=== PATIENT | female | born 2000 | race Hispanic/Latino ===

== ENCOUNTER 2022-02-21 23:14 | Emergency (ER) | payer OTHER, MEDICAID, SELFPAY ==
[2022-02-21 23:21] VITALS: BP 134/92; PULSE 67; RESP 22; TEMP 36.6; O2SAT 100
== END 2022-02-22 01:04 | disposition left against medical advice (07) ==
PROVIDERS: Emergency Provider Emergency Medicine
CPT/HCPCS: 99281

== ENCOUNTER 2022-04-10 12:02 | Emergency (ER) | payer OTHER, MEDICAID, SELFPAY ==
[2022-04-10 12:16] VITALS: BP 132/93; PULSE 95; RESP 18; TEMP 36.6; O2SAT 97; BMI 34.3
[2022-04-10 12:53] LABS: COVID19 -Nasal RAPID POSITIVE (Negative)
--- NOTE | 2022-04-10 13:27 | ED.RECABL ---
HPI - Recheck/Abnormal Lab/Rx General Chief Complaint: Recheck/Abnormal Lab/Rx Stated Complaint: loss of taste/smell, wants covid test Time Seen by Provider: 04/10/22 13:27 Source: patient Mode of arrival: Ambulatory History of Present Illness HPI narrative: Patient is a healthy 21-year-old female who presents with positive COVID test. She started feeling poorly last night nasal congestion sore throat to go home COVID test was positive. She has no chest pain or shortness of breath. Needing an official positive COVID test for work Related Data Allergies Allergy/AdvReac Type Severity Reaction Status Date / Time No Known Drug Allergies Allergy Verified 04/10/22 12:23 Review of Systems Review of Systems Narrative: GENERAL: Denies chills,fever HEENT: Denies throat pain RESPIRATORY: Denies dyspnea, cough, wheezing CARDIOVASCULAR: Denies chest pain, palpitations GASTROINTESTINAL: Denies nausea, vomiting MUSCULOSKELETAL: Denies extremity pain, injury SKIN: No rash, no laceration, no pruritus NEUROLOGIC: Denies weakness, dizziness, headache, numbness 8 point review of systems is negative except for those stated above and HPI Exam Initial Vital Signs Initial Vital Signs: Vital Signs Temperature 97.9 F 04/10/22 12:16 Pulse Rate 95 H 04/10/22 12:16 Respiratory Rate 18 04/10/22 12:16 Blood Pressure 132/93 H 04/10/22 12:16 Pulse Oximetry 97 04/10/22 12:16 Oxygen Delivery Method 04/10/22 12:16 Course Orders Ordered: ED Orders 04/10/22 12:20 COVID19 -Nasal RAPID/Pre-Proc Stat Vital Signs Vital signs: Vital Signs - 8 hr 04/10/22 12:16 Temperature 97.9 F Pulse Rate 95 H Respiratory Rate 18 Blood Pressure 132/93 H Pulse Oximetry 97 Oxygen Delivery Method Room Air MDM - Recheck/Abnormal Lab/Rx Lab Data Labs: Lab Results 04/10/22 Range/Units 12:20 SARS-CoV-2 (PCR) Positive H (Negative) Discharge Plan Departure Patient Disposition: Home Clinical Impression: COVID-19 Instructions: COVID-19 Viral Test Activity Restrictions/Additional Instructions: *You have been diagnosed with COVID-19 *What to do: At this time supportive care only hydrate rest and fever control. Quarantine is recommended by CDC guidelines about 7 days *Continue to take medications as directed *Follow up with your primary care provider in 2-3 days or call [phone] *Return to ER if you should have increasing shortness of breath, oxygen less than 90% (monitor with home oximeter), or any new, worsening or concerning symptoms Visit Report Forms: Patient Portal/API
== END 2022-04-10 13:55 | disposition home or self-care (01) ==
PROVIDERS: Emergency Provider Emergency Medicine
DX: U07.1 COVID-19 (principal)
CPT/HCPCS: 87635; 99281; 99282; C9803